=== PATIENT | female | born 1955 | race Caucasian/White ===

== ENCOUNTER 2017-06-07 09:05 | Outpatient (CLI) | payer MEDICARE ==
[~2017-06-07] VITALS: Ht 167.6 cm; Wt 65.9 kg
[2017-06-07] MEDS ORDERED: DURAGESIC1 PATCH .3 TRANSDERM (10:55)
[2017-06-07] MEDS ORDERED: MORPHINE IMMEDI15 MG PO (10:57)
[2017-06-07] MEDS ORDERED: FUROSEMIDE20 MG (11:01)
[2017-06-07] MEDS ORDERED: ATIVAN0.5 MG PO (11:01)
[2017-06-07 11:13] VITALS: BP 130/58; Ht 167.6 cm; Wt 65.9 kg
[2017-06-07 11:32] LABS: BASOPHILS 0 % (0-2); EOSINOPHILS 0.3 % (0-7); HEMATOCRIT 31.1 % (36.0-48.0); HEMOGLOBIN 9.7 g/dL (12-16); IMMATURE GRANULOCYTES 0.5 % (0-5); MCH 28.1 pg (26.0-34.0); MCHC 31.2 g/dL (31.0-37.0); MCV 90.1 fL (80.0-100.0); MONOCYTES 0.8 % (2-11); NEUTROPHILS 86.4 % (40-80); RBC 3.45 10x6/uL (4.00-5.40); RDW 19.6 % (11.5-14.5); WBC 3.7 10x3/uL (4.8-10.8)
[2017-06-07 11:47] LABS: CALC OSMOLALITY 280 mosm/kg (275-300); CALCIUM 9.3 mg/dL (8.5-10.1); CARBON DIOXIDE 37.3 mmol/L (21.0-32.0); CHLORIDE - SERUM 100 mmol/L (98-107); CREATININE - SERUM 0.7 mg/dL (0.6-1.3); GLUCOSE 86 mg/dL (74-106); PLATELET COUNT 24 10x3/uL (130-400); POTASSIUM - SERUM 3.3 mmol/L (3.5-5.1); SODIUM 140 mmol/L (136-145); UREA NITROGEN 20 mg/dL (7-18); eGFR NON AFRICAN AMERICAN 90 mL/min (90-120)
[2017-06-07 12:05] LABS: APTT 37.8 SECONDS (22.8-39.4); INR 1.08 (0.85-1.17); PROTIME 13.6 SECONDS (11.6-15.0)
[2017-06-07 12:35] LABS: PLATELET ESTIMATE DECREASED
== END 2017-06-07 18:40 | disposition home or self-care (01) ==
LOC: D.OPS 09:05 → D.SP 11:00 → D.OPS 11:00
PROVIDERS: Radiology Diagnostic Radiology
DX: J90 Pleural effusion, not elsewhere classified (principal); C50.919 Malignant neoplasm of unspecified site of unspecified female breast; C79.9 Secondary malignant neoplasm of unspecified site; Z01.812 Encounter for preprocedural laboratory examination

== ENCOUNTER 2017-07-18 08:00 | Outpatient (CLI) | payer MEDICARE ==
[~2017-07-18] VITALS: Ht 167.6 cm; Wt 66.8 kg
[~2017-07-18 08:00] MED LIST: ATIVAN0.5 MG PO; DURAGESIC1 PATCH .3 TRANSDERM; FUROSEMIDE20 MG; MORPHINE IMMEDI15 MG PO
[2017-07-18] MEDS ORDERED: PHENERGAN25 M1 PO (08:35)
[2017-07-18] MEDS ORDERED: ZOFRAN ODT4 MG/UDTAB PO (08:35)
[2017-07-18] MEDS ORDERED: DEXAMETHASONE2 MG PO (08:36)
[2017-07-18 08:48] VITALS: Ht 167.6 cm; Wt 66.8 kg
[2017-07-18 08:53] LABS: BASOPHILS 0 % (0-2); EOSINOPHILS 1.1 % (0-7); HEMATOCRIT 29.2 % (36.0-48.0); HEMOGLOBIN 8.8 g/dL (12-16); IMMATURE GRANULOCYTES 0.2 % (0-5); LYMPHOCYTES 1.9 % (15-50); MCH 28.7 pg (26.0-34.0); MCHC 30.1 g/dL (31.0-37.0); MCV 95.1 fL (80.0-100.0); NEUTROPHILS 94.8 % (40-80); RBC 3.07 10x6/uL (4.00-5.40); RDW 20.8 % (11.5-14.5); WBC 11.3 10x3/uL (4.8-10.8)
[2017-07-18 08:57] LABS: PLATELET COUNT 139 10x3/uL (130-400)
[2017-07-18 09:11] LABS: INR 1.12 (0.85-1.17)
[2017-07-18 09:23] LABS: CALC OSMOLALITY 283 mosm/kg (275-300); CALCIUM 8.8 mg/dL (8.5-10.1); CARBON DIOXIDE 32.4 mmol/L (21.0-32.0); CHLORIDE - SERUM 102 mmol/L (98-107); CREATININE - SERUM 0.7 mg/dL (0.6-1.3); GLUCOSE 97 mg/dL (74-106); POTASSIUM - SERUM 4.1 mmol/L (3.5-5.1); SODIUM 139 mmol/L (136-145); UREA NITROGEN 28 mg/dL (7-18); eGFR NON AFRICAN AMERICAN 90 mL/min (90-120)
[2017-07-18 10:43] LABS: APTT > 200.0 SECONDS (22.8-39.4)
== END 2017-07-18 13:45 ==
LOC: D.SP 08:00 → D.CT 09:00 → D.SP 09:00
PROVIDERS: Radiology Diagnostic Radiology
DX: J91.0 Malignant pleural effusion (principal); Z01.812 Encounter for preprocedural laboratory examination